=== PATIENT | male | born 1980 | race Caucasian/White ===

== ENCOUNTER 2018-09-27 06:56 | Outpatient (CLI) | payer OTHER ==
--- NOTE | 2018-09-29 09:11 | MRI Report ---
Reason: PAIN IN LEFT SHOUDLER Procedure Date: 09/27/2018 Accession Number: [id number] / [id number] Procedure: MRI - Shoulder LT W/O CPT Code: FULL RESULT: EXAM: LEFT SHOULDER MRI WITHOUT CONTRAST EXAM DATE: 09/27/2018 08:15 AM. CLINICAL HISTORY: Left shoulder pain, injury. COMPARISON: None. TECHNIQUE: Multiplanar, multisequence T1-weighted and fluid-sensitive sequences of the shoulder without contrast. Other: None. FINDINGS: Acromioclavicular Region: The acromion is type II. The acromioclavicular joint is unremarkable. The coracoacromial and coracoclavicular ligaments are intact. No subacromial/subdeltoid bursal fluid. Glenohumeral Region: No subluxation. No effusion or loose bodies. The articular cartilage is unremarkable. The glenohumeral ligaments and joint capsule are unremarkable. Bone Marrow: No fractures. A bone island is in the right humeral head. Labrum: The labrum is unremarkable on this nonarthrographic study. Musculature/Rotator Cuff: Subscapularis, supraspinatus, and teres minor tendons are intact. There is a small partial-thickness, joint sided tear of the mid infraspinatus tendon that has a width of 3 mm, length of 4 mm, and is 50% in thickness (701/5). No edema or fatty atrophy. Biceps Tendon: The long head of the biceps tendon and biceps jocelyne are intact. Other: The subcutaneous tissues are unremarkable. IMPRESSION: 1. Small partial tear of the distal insertion of the infraspinatus tendon. [facility]
== END 2018-09-27 06:57 | disposition home or self-care (01) ==
LOC: DI 06:56
DX: S43.492A Other sprain of left shoulder joint, initial encounter (principal)